=== PATIENT | male | born 1970 | race Caucasian/White ===

== ENCOUNTER 2017-04-26 12:32 | Inpatient (IN) | payer MEDICARE ==
[~2017-04-26] VITALS: Ht 175.3 cm; Wt 92.2 kg
[~2017-04-26 12:32] MED LIST: OLAN7.5T2 PO; SIMV5TAB6 PO
[2017-04-26] MEDS ORDERED: LORazepam 2 MG TABLET PO PRN (14:15)
[2017-04-26] MEDS ORDERED: ZOLPIDEM TARTRATE 10 MG TABLET PO PRN (14:15)
[2017-04-26 14:25] VITALS: BP 152/96
[2017-04-26 14:43] VITALS: BP 123/83
[2017-04-26 15:07] LABS: GLUCOSE,POINT OF CARE 129 MG/DL (70-110)
[2017-04-26 16:16] VITALS: BP 110/59
[2017-04-26] MEDS: OLANZapine 10 MG TABLET PO SCH (21:03)
[2017-04-27] MEDS ORDERED: INFLUENZA VIRUS VACCINE QVS 2017-18 (3YR+)/PF 60 MCG/0.5 ML SYRINGE IM ONE (02:00)
[2017-04-27] MEDS ORDERED: PNEUMOCOCCAL VACCINE POLYVALENT 0.5 ML VIAL [PPSV23] IM ONE (02:00)
[2017-04-27 08:04] VITALS: BP 154/65
[2017-04-27 09:30] VITALS: BP 132/66
[2017-04-27] MEDS: NICOTINE 14 MG/24 HOUR PATCH TD SCH (12:26)
[2017-04-27 16:03] VITALS: BP 116/63
[2017-04-27] MEDS: OLANZapine 10 MG TABLET PO SCH (20:32)
[2017-04-28] MEDS: NICOTINE 14 MG/24 HOUR PATCH TD SCH (08:36)
[2017-04-28 08:41] VITALS: BP 133/64
[2017-04-28 08:45] LABS: BASOPHILS % (AUTO) 0.4 % (0.0-2.0); HEMATOCRIT 45.9 % (41-53); HEMOGLOBIN 15.7 g/dL (13.5-17.5); LYMPHOCYTES # (AUTO) 2.4 K/uL (1.0-4.8); LYMPHOCYTES % (AUTO) 34.6 % (22.0-44.0); MEAN CORPUSCULAR HEMOGLOBIN 32.5 pg (26.0-34.0); MEAN CORPUSCULAR HGB CONC 34.2 G/dL (31.0-37.0); MEAN CORPUSCULAR VOLUME 95 fL (80-100); MONOCYTES # (AUTO) 0.5 K/uL (0.1-1.0); MONOCYTES % (AUTO) 6.8 % (2.0-9.0); NEUTROPHILS # (AUTO) 3.8 K/uL (1.8-7.7); NEUTROPHILS % (AUTO) 56.2 % (40.0-70.0); PLATELET COUNT (AUTO) 248 K/uL (150-450); RED BLOOD CELL COUNT(AUTO) 4.83 MIL/uL (4.50-5.90); RED CELL DISTRIBUTION WIDTH 13.9 % (11.5-14.5); WHITE BLOOD COUNT (AUTO) 6.8 K/uL (4.5-11.0)
[2017-04-28 08:55] LABS: HEMOGLOBIN A1C 5.5 % (4.5-6.2)
[2017-04-28 09:18] LABS: ALANINE AMINOTRANSFERASE 34 U/L (12-78); ALBUMIN 3.8 g/dL (3.4-5.0); ANION GAP 6 mmol/L (8-16); ASPARTATE AMINOTRANSFERASE 16 U/L (15-37); BILIRUBIN,TOTAL 0.7 mg/dL (0.1-1.0); CALCIUM, TOTAL 8.7 mg/dL (8.8-10.5); CARBON DIOXIDE 32 mmol/L (22-29); CHLORIDE 107 mmol/L (98-107); CHOL/HDL RATIO 5.7 (4.2-7.3); CREATININE 0.83 mg/dL (0.60-1.30); GLOMERULAR FILTR. RATE CALC > 60 mL/min (>60); POTASSIUM 4.2 mmol/L (3.5-5.1); SODIUM SERUM 145 mmol/L (136-145); THYROID STIMULATING HORMONE 3.27 uIU/mL (0.36-3.74); TOTAL PROTEIN, SERUM 6.5 g/dL (6.4-8.2); UREA NITROGEN, BLOOD 12 mg/dL (7-18)
[2017-04-28 16:17] VITALS: BP 115/62
[2017-04-28] MEDS: OLANZapine 10 MG TABLET PO SCH (20:30)
[2017-04-29 08:19] VITALS: BP 115/69
[2017-04-29] MEDS: NICOTINE 14 MG/24 HOUR PATCH TD SCH (08:38)
[2017-04-29 16:14] VITALS: BP 120/70
[2017-04-29] MEDS: OLANZapine 10 MG TABLET PO SCH (20:06)
[2017-04-30 08:28] VITALS: BP_SYST 128; BP_SYST 138; BP_DIAS 64; BP_DIAS 92
[2017-04-30] MEDS: NICOTINE 14 MG/24 HOUR PATCH TD SCH (08:28)
[2017-04-30 16:00] VITALS: BP 102/60
[2017-04-30] MEDS: OLANZapine 10 MG TABLET PO SCH (20:34)
[2017-05-01 06:28] VITALS: BP 125/68
[2017-05-01 08:13] VITALS: BP 109/60
[2017-05-01] MEDS: NICOTINE 14 MG/24 HOUR PATCH TD SCH (08:33)
[2017-05-01 16:09] VITALS: BP 128/64
[2017-05-01] MEDS: OLANZapine 10 MG TABLET PO SCH (20:38)
[2017-05-02 08:24] VITALS: BP 121/72
[2017-05-02] MEDS: NICOTINE 14 MG/24 HOUR PATCH TD SCH (08:55)
[2017-05-02 16:08] VITALS: BP 128/62
[2017-05-02] MEDS: OLANZapine 10 MG TABLET PO SCH (20:46)
[2017-05-03 00:27] VITALS: BP 125/67
[2017-05-03 08:31] VITALS: BP 118/79
[2017-05-03] MEDS: NICOTINE 14 MG/24 HOUR PATCH TD SCH (08:45)
[2017-05-03 16:08] VITALS: BP 122/63
[2017-05-03] MEDS: OLANZapine 10 MG TABLET PO SCH (20:55)
[2017-05-04 00:08] VITALS: BP 106/68
[2017-05-04] MEDS: NICOTINE 14 MG/24 HOUR PATCH TD SCH (08:58)
[2017-05-04 09:00] VITALS: BP 118/65
[2017-05-04 16:14] VITALS: BP 114/68
[2017-05-04] MEDS: OLANZapine 10 MG TABLET PO SCH (20:51)
[2017-05-05 06:48] VITALS: BP 112/65
[2017-05-05] MEDS: NICOTINE 14 MG/24 HOUR PATCH TD SCH (08:20)
[2017-05-05 08:21] VITALS: BP 120/79
[2017-05-05 16:20] VITALS: BP 123/80
[2017-05-05] MEDS: OLANZapine 10 MG TABLET PO SCH (20:32)
[2017-05-06] MEDS: NICOTINE 14 MG/24 HOUR PATCH TD SCH (08:39)
[2017-05-06 08:44] VITALS: BP 108/58
[2017-05-06] MEDS: OLANZapine 5 MG TABLET PO SCH (10:12)
[2017-05-06 16:13] VITALS: BP 119/74
[2017-05-06] MEDS: OLANZapine 10 MG TABLET PO SCH (20:18)
[2017-05-07 05:58] VITALS: BP_SYST 106; BP_SYST 137; BP_DIAS 66; BP_DIAS 73
[2017-05-07 08:00] VITALS: BP 115/76
[2017-05-07] MEDS: OLANZapine 5 MG TABLET PO SCH (08:58)
[2017-05-07] MEDS: NICOTINE 14 MG/24 HOUR PATCH TD SCH (08:59)
[2017-05-07 16:24] VITALS: BP 118/71
[2017-05-07] MEDS: OLANZapine 10 MG TABLET PO SCH (20:01)
[2017-05-08 08:32] VITALS: BP 109/70
[2017-05-08] MEDS: OLANZapine 5 MG TABLET PO SCH (08:53)
[2017-05-08] MEDS: NICOTINE 14 MG/24 HOUR PATCH TD SCH (08:54)
[2017-05-08 16:27] VITALS: BP 122/64
[2017-05-08] MEDS: OLANZapine 10 MG TABLET PO SCH (20:12)
[2017-05-09 00:10] VITALS: BP 126/71
[2017-05-09] MEDS: OLANZapine 5 MG TABLET PO SCH (08:59)
[2017-05-09] MEDS: NICOTINE 14 MG/24 HOUR PATCH TD SCH (09:00)
[2017-05-09 09:15] VITALS: BP 115/60
[2017-05-09 16:27] VITALS: BP 116/74
[2017-05-09] MEDS: OLANZapine 10 MG TABLET PO SCH (20:23)
[2017-05-10 08:23] VITALS: BP 100/64
[2017-05-10] MEDS: OLANZapine 10 MG TABLET PO SCH ×2 (08:30→20:12)
[2017-05-10] MEDS: NICOTINE 14 MG/24 HOUR PATCH TD SCH (08:31)
[2017-05-10 16:06] VITALS: BP 136/77
[2017-05-11 01:20] VITALS: BP 126/64
[2017-05-11 08:12] VITALS: BP 117/74
[2017-05-11] MEDS: OLANZapine 10 MG TABLET PO SCH ×2 (08:24→20:36)
[2017-05-11] MEDS: NICOTINE 14 MG/24 HOUR PATCH TD SCH (08:24)
[2017-05-11 16:05] VITALS: BP 119/60
[2017-05-12 01:03] VITALS: BP 129/83
[2017-05-12 08:06] VITALS: BP 119/76
[2017-05-12] MEDS: OLANZapine 10 MG TABLET PO SCH ×2 (08:36→20:37)
[2017-05-12] MEDS: NICOTINE 14 MG/24 HOUR PATCH TD SCH (08:36)
[2017-05-12 16:15] VITALS: BP 125/66
[2017-05-13 06:34] VITALS: BP 118/73
[2017-05-13] MEDS: OLANZapine 10 MG TABLET PO SCH ×2 (08:20→20:21)
[2017-05-13] MEDS: NICOTINE 14 MG/24 HOUR PATCH TD SCH (08:21)
[2017-05-13 09:03] VITALS: BP 111/74
[2017-05-13 16:17] VITALS: BP 130/78
[2017-05-14 07:17] VITALS: BP 132/70
[2017-05-14 08:49] VITALS: BP 104/68
[2017-05-14] MEDS: OLANZapine 10 MG TABLET PO SCH ×2 (08:51→20:09)
[2017-05-14] MEDS: NICOTINE 14 MG/24 HOUR PATCH TD SCH (08:51)
[2017-05-14 16:04] VITALS: BP 116/75
[2017-05-15 00:34] VITALS: BP 117/76
[2017-05-15 08:50] VITALS: BP 115/71
[2017-05-15] MEDS: NICOTINE 14 MG/24 HOUR PATCH TD SCH (09:12)
[2017-05-15] MEDS: OLANZapine 10 MG TABLET PO SCH ×2 (09:12→20:36)
[2017-05-15 16:21] VITALS: BP 123/91
[2017-05-16 06:43] VITALS: BP 125/71
[2017-05-16 08:35] VITALS: BP 128/72
[2017-05-16] MEDS: NICOTINE 14 MG/24 HOUR PATCH TD SCH (09:42)
[2017-05-16] MEDS: OLANZapine 10 MG TABLET PO SCH ×2 (09:43→20:44)
[2017-05-16 16:10] VITALS: BP 111/80
[2017-05-17 01:28] VITALS: BP 110/70
[2017-05-17 08:06] VITALS: BP 100/54
[2017-05-17] MEDS: OLANZapine 10 MG TABLET PO SCH ×2 (08:40→20:21)
[2017-05-17] MEDS: NICOTINE 14 MG/24 HOUR PATCH TD SCH (08:40)
[2017-05-17 16:42] VITALS: BP 122/80
[2017-05-18 06:13] VITALS: BP 140/60
[2017-05-18] MEDS: NICOTINE 14 MG/24 HOUR PATCH TD SCH (08:16)
[2017-05-18] MEDS: OLANZapine 10 MG TABLET PO SCH ×2 (08:16→20:37)
[2017-05-18 08:35] VITALS: BP 128/78
[2017-05-18 16:25] VITALS: BP 119/74
[2017-05-18 20:30] VITALS: BP 118/75
[2017-05-19 06:38] VITALS: BP 117/66
[2017-05-19 08:20] VITALS: BP 109/64
[2017-05-19] MEDS: OLANZapine 7.5 MG TABLET PO SCH (08:47)
[2017-05-19] MEDS: NICOTINE 14 MG/24 HOUR PATCH TD SCH (08:47)
[2017-05-19 16:11] VITALS: BP 113/72
[2017-05-19] MEDS: OLANZapine 10 MG TABLET PO SCH (20:39)
[2017-05-20 02:41] VITALS: BP 103/60
[2017-05-20] MEDS: OLANZapine 7.5 MG TABLET PO SCH (08:39)
[2017-05-20] MEDS: NICOTINE 14 MG/24 HOUR PATCH TD SCH (08:40)
[2017-05-20 08:46] VITALS: BP 119/72
[2017-05-20 16:14] VITALS: BP 117/74
[2017-05-20] MEDS: OLANZapine 10 MG TABLET PO SCH (20:41)
[2017-05-21 01:35] VITALS: BP 107/64
[2017-05-21 08:26] VITALS: BP 107/68
[2017-05-21] MEDS: NICOTINE 14 MG/24 HOUR PATCH TD SCH (08:42)
[2017-05-21] MEDS: OLANZapine 7.5 MG TABLET PO SCH (08:42)
[2017-05-21 16:09] VITALS: BP 118/69
[2017-05-21] MEDS: OLANZapine 10 MG TABLET PO SCH (20:02)
[2017-05-22 06:30] VITALS: BP 138/83
[2017-05-22 08:14] VITALS: BP 112/60
[2017-05-22] MEDS: OLANZapine 7.5 MG TABLET PO SCH (08:45)
[2017-05-22] MEDS: NICOTINE 14 MG/24 HOUR PATCH TD SCH (08:45)
[2017-05-22 16:09] VITALS: BP 119/76
[2017-05-22] MEDS: OLANZapine 10 MG TABLET PO SCH (20:19)
[2017-05-23 06:17] VITALS: BP 115/63
[2017-05-23 08:25] VITALS: BP 127/76
[2017-05-23] MEDS: OLANZapine 7.5 MG TABLET PO SCH (08:40)
[2017-05-23] MEDS: NICOTINE 14 MG/24 HOUR PATCH TD SCH (08:40)
[2017-05-23 16:05] VITALS: BP 114/74
[2017-05-23] MEDS: OLANZapine 10 MG TABLET PO SCH (20:59)
[2017-05-23] MEDS: GuaiFENesin/D-METHORPHAN [SUGAR-FREE] 200-20MG/10 ML SYRUP UDCUP PO PRN (21:08)
[2017-05-24 06:38] VITALS: BP 116/62
[2017-05-24 08:11] VITALS: BP 118/63
[2017-05-24] MEDS: OLANZapine 10 MG TABLET PO SCH ×2 (08:36→20:18)
[2017-05-24] MEDS: NICOTINE 14 MG/24 HOUR PATCH TD SCH (08:37)
[2017-05-24 16:07] VITALS: BP 125/81
[2017-05-24] MEDS: GuaiFENesin/D-METHORPHAN [SUGAR-FREE] 200-20MG/10 ML SYRUP UDCUP PO PRN (20:03)
[2017-05-25 05:48] VITALS: BP 121/67
[2017-05-25 08:05] VITALS: BP 134/76
[2017-05-25] MEDS: OLANZapine 10 MG TABLET PO SCH ×2 (08:44→20:37)
[2017-05-25] MEDS: NICOTINE 14 MG/24 HOUR PATCH TD SCH (08:45)
[2017-05-25 17:07] VITALS: BP 118/77
[2017-05-25] MEDS: GuaiFENesin/D-METHORPHAN [SUGAR-FREE] 200-20MG/10 ML SYRUP UDCUP PO PRN (19:55)
[2017-05-26 06:33] VITALS: BP 119/62
[2017-05-26 08:12] VITALS: BP 109/63
[2017-05-26] MEDS: OLANZapine 10 MG TABLET PO SCH ×2 (08:47→20:36)
[2017-05-26] MEDS: NICOTINE 14 MG/24 HOUR PATCH TD SCH (08:48)
[2017-05-26 16:13] VITALS: BP 120/76
[2017-05-26] MEDS: DIVALPROEX SODIUM 500 MG DR TABLET PO SCH (21:00)
[2017-05-27 06:43] VITALS: BP 139/87
[2017-05-27 08:39] VITALS: BP 141/84
[2017-05-27] MEDS: OLANZapine 10 MG TABLET PO SCH ×2 (08:52→21:01)
[2017-05-27] MEDS: NICOTINE 14 MG/24 HOUR PATCH TD SCH (08:53)
[2017-05-27] MEDS: DIVALPROEX SODIUM 500 MG DR TABLET PO SCH ×2 (08:59→21:00)
[2017-05-27 16:19] VITALS: BP 127/85
[2017-05-28 06:00] VITALS: BP 110/78
[2017-05-28] MEDS: NICOTINE 14 MG/24 HOUR PATCH TD SCH (08:30)
[2017-05-28] MEDS: OLANZapine 10 MG TABLET PO SCH ×2 (08:30→20:51)
[2017-05-28] MEDS: DIVALPROEX SODIUM 500 MG DR TABLET PO SCH ×3 (08:37→21:00)
[2017-05-28 09:16] VITALS: BP 147/86
[2017-05-28 16:17] VITALS: BP 124/81
[2017-05-29 06:16] VITALS: BP 117/75
[2017-05-29 08:43] VITALS: BP 120/60
[2017-05-29] MEDS: OLANZapine 10 MG TABLET PO SCH ×2 (08:59→20:51)
[2017-05-29] MEDS: DIVALPROEX SODIUM 500 MG DR TABLET PO SCH ×2 (09:00→21:00)
[2017-05-29] MEDS: NICOTINE 14 MG/24 HOUR PATCH TD SCH (09:00)
[2017-05-29 16:09] VITALS: BP 119/74
[2017-05-30 01:30] VITALS: BP 119/75
[2017-05-30 08:38] VITALS: BP 115/73
[2017-05-30] MEDS: NICOTINE 14 MG/24 HOUR PATCH TD SCH (08:45)
[2017-05-30] MEDS: OLANZapine 10 MG TABLET PO SCH ×2 (08:45→20:37)
[2017-05-30] MEDS: DIVALPROEX SODIUM 500 MG DR TABLET PO SCH (08:50)
[2017-05-30 16:22] VITALS: BP 126/87
[2017-05-31 06:44] VITALS: BP 127/78
[2017-05-31 08:39] VITALS: BP 120/65
[2017-05-31] MEDS: OLANZapine 10 MG TABLET PO SCH ×2 (09:04→20:37)
[2017-05-31] MEDS: NICOTINE 14 MG/24 HOUR PATCH TD SCH (09:05)
[2017-05-31 16:09] VITALS: BP 125/82
[2017-06-01 06:27] VITALS: BP 119/70
[2017-06-01 08:23] VITALS: BP 124/84
[2017-06-01] MEDS: OLANZapine 10 MG TABLET PO SCH ×2 (08:27→20:35)
[2017-06-01] MEDS: NICOTINE 14 MG/24 HOUR PATCH TD SCH (08:28)
[2017-06-01 16:12] VITALS: BP 119/78
[2017-06-02 00:33] VITALS: BP 120/67
[2017-06-02] MEDS: OLANZapine 10 MG TABLET PO SCH ×2 (08:36→20:43)
[2017-06-02] MEDS: NICOTINE 14 MG/24 HOUR PATCH TD SCH (08:36)
[2017-06-02 09:45] VITALS: BP 114/67
[2017-06-02 16:10] VITALS: BP 120/78
[2017-06-03 00:46] VITALS: BP 105/68
[2017-06-03 08:22] VITALS: BP 121/65
[2017-06-03] MEDS: OLANZapine 10 MG TABLET PO SCH ×2 (08:33→20:29)
[2017-06-03] MEDS: NICOTINE 14 MG/24 HOUR PATCH TD SCH (08:34)
[2017-06-03 16:11] VITALS: BP 131/78
[2017-06-04 00:04] VITALS: BP 127/65
[2017-06-04 08:21] VITALS: BP 131/77
[2017-06-04] MEDS: OLANZapine 10 MG TABLET PO SCH ×2 (08:27→20:30)
[2017-06-04] MEDS: NICOTINE 14 MG/24 HOUR PATCH TD SCH (08:28)
[2017-06-04 16:08] VITALS: BP 114/71
[2017-06-05 06:09] VITALS: BP 131/86
[2017-06-05] MEDS: NICOTINE 14 MG/24 HOUR PATCH TD SCH (08:02)
[2017-06-05] MEDS: OLANZapine 10 MG TABLET PO SCH ×2 (08:02→20:15)
[2017-06-05 08:27] VITALS: BP 126/76
[2017-06-05 16:14] VITALS: BP 119/74
[2017-06-06 02:11] VITALS: BP 119/63
[2017-06-06] MEDS: OLANZapine 10 MG TABLET PO SCH ×2 (08:30→20:35)
[2017-06-06] MEDS: NICOTINE 14 MG/24 HOUR PATCH TD SCH (08:31)
[2017-06-06 08:49] VITALS: BP 137/78
[2017-06-06 16:03] VITALS: BP 120/87
[2017-06-07 06:29] VITALS: BP 128/82
[2017-06-07] MEDS: NICOTINE 14 MG/24 HOUR PATCH TD SCH (08:16)
[2017-06-07] MEDS: OLANZapine 10 MG TABLET PO SCH ×2 (08:16→20:31)
[2017-06-07 08:20] VITALS: BP 132/77
[2017-06-07 16:09] VITALS: BP 135/75
[2017-06-08 06:16] VITALS: BP 129/71
[2017-06-08 08:16] VITALS: BP 123/71
[2017-06-08] MEDS: OLANZapine 10 MG TABLET PO SCH ×2 (08:27→20:20)
[2017-06-08] MEDS: NICOTINE 14 MG/24 HOUR PATCH TD SCH (08:27)
[2017-06-08 16:07] VITALS: BP 121/79
[2017-06-09 06:12] VITALS: BP 121/80
[2017-06-09] MEDS: OLANZapine 10 MG TABLET PO SCH ×2 (08:15→20:44)
[2017-06-09] MEDS: NICOTINE 14 MG/24 HOUR PATCH TD SCH (08:15)
[2017-06-09 08:34] VITALS: BP 115/70
[2017-06-09 16:30] VITALS: BP 101/61
[2017-06-10 06:34] VITALS: BP 141/78
[2017-06-10 08:00] VITALS: BP 118/72
[2017-06-10] MEDS: NICOTINE 14 MG/24 HOUR PATCH TD SCH (08:34)
[2017-06-10] MEDS: OLANZapine 10 MG TABLET PO SCH ×2 (08:34→20:45)
[2017-06-10 16:05] VITALS: BP 119/72
[2017-06-11 06:34] VITALS: BP 114/60
[2017-06-11 08:38] VITALS: BP 148/85
[2017-06-11] MEDS: NICOTINE 14 MG/24 HOUR PATCH TD SCH (09:03)
[2017-06-11] MEDS: OLANZapine 10 MG TABLET PO SCH ×2 (09:03→20:31)
[2017-06-11 16:39] VITALS: BP 124/83
[2017-06-12 06:40] VITALS: BP 140/80
[2017-06-12 08:32] VITALS: BP 119/69
[2017-06-12] MEDS: NICOTINE 14 MG/24 HOUR PATCH TD SCH (08:46)
[2017-06-12] MEDS: OLANZapine 10 MG TABLET PO SCH (08:46)
[2017-06-12] MEDS ORDERED: OLAN10TA3 PO (13:45)
== END 2017-06-12 14:10 | disposition home or self-care (01) | DRG 885 ==
LOC: B2X 14:23
DX: F20.0 Paranoid schizophrenia (principal); E11.9 Type 2 diabetes mellitus without complications; Z28.21 Immunization not carried out because of patient refusal; F17.200 Nicotine dependence, unspecified, uncomplicated; F32.9 Major depressive disorder, single episode, unspecified; E78.5 Hyperlipidemia, unspecified; Z59.0 Homelessness; Z91.83 Wandering in diseases classified elsewhere; Z63.9 Problem related to primary support group, unspecified; Z79.899 Other long term (current) drug therapy; Z88.8 Allergy status to other drugs, medicaments and biological substances
CPT/HCPCS: 82962; 83036; 84439; 84443; 87081; 93005